=== PATIENT | female | born 1980 | race Caucasian/White ===

== ENCOUNTER 2016-09-24 15:11 | Emergency (ER) ==
[2016-09-24 15:21] VITALS: BP 168/109; TEMP 99.7; BMI 36.3
--- NOTE | 2016-09-24 16:09 | ED.PDOC ---
General ED Provider: Dr. ELEANOR ALBRECHT-ER Chief Complaint: Nausea/Vomiting Stated Complaint: my pancreatitis is flaring Time Seen by Physician: 16:07 Mode of Arrival: Walk-In Information Source: Patient Exam Limitations: No limitations Primary Care Provider: KUSUM SPANN Nursing and Triage Documentation Reviewed and Agree: Yes GI Complaint Exam - Abdominal Pain Complaint/Exam Onset: Gradual Duration: 3 days Symptoms Are: Still present Timing: Constant Initial Severity: Mild Current Severity: Moderate Location of Pain: Discrete Character: Reports: Dull, Aching, Cramping Alleviating: Reports: Vomiting. Denies: Bowel movement Associated Signs and Symptoms: Reports: Nausea, Vomiting, Diarrhea. Denies: Diaphoresis, Fever, Cough, Chest pain, Dizziness, Back pain, Constipation, Dysuria, Urinary frequency, Decreased urine output, Decreased appetite, Vaginal bleeding, Vaginal discharge Related History: Reports: Similar episode Ectopic Risk Factors: Reports: Tubal ligation Ovarian Torsion Risk Factors: Reports: Tubal ligation Surgical Obstruction Risk Factors: Reports: Colicky abdominal pain, Prior abdominal surgery Patient Rh Status: Unknown Abdominal Findings: Present: None Differential Diagnoses: Pancreatitis, Other Review of Systems - Review Of Systems Constitutional: Reports: No symptoms Eyes: Reports: No symptoms Ears, Nose, Mouth, Throat: Reports: No symptoms Respiratory: Reports: No symptoms Cardiac: Reports: No symptoms GI: Reports: Abdominal pain, Nausea, Vomiting : Reports: No symptoms Musculoskeletal: Reports: No symptoms Skin: Reports: No symptoms Neurological: Reports: No symptoms Endocrine: Reports: No symptoms Hematologic/Lymphatic: Reports: No symptoms All Other Systems: Reviewed and Negative Past Medical History - Past Medical History Previously Healthy: Yes Endocrine: Reports: DM 2, Dyslipidemia Cardiovascular: Reports: Hypertension Respiratory: Reports: None Hematological: Reports: None Gastrointestinal: Reports: GERD, Pancreatitis (CHRONIC), Other ( IBS ) Genitourinary: Reports: None Neuro/Psych: Reports: None Musculoskeletal: Reports: Joint Pain Cancer: Reports: None Last Menstrual Period: 2 weeks Other Pertinent Past Medical History: CHRONIC PANCREATITIS htn dm chol gerd - Surgical History General Surgical History: Reports: Tubal ligation, , Cholecystectomy ( ERCP, CHOLECYSTECTOMY), Orthopedic (BIALT CARPAL TUNNEL) - Family History Family History: Reports: Unknown - Social History Smoking Status: Former smoker Hx Substance Use: No Alcohol Screening: None Lives: With family Physical Exam - Physical Exam Appearance: Well-appearing, No pain distress, Well-nourished Pain Distress: Moderate Eyes: CHRISTOS, EOMI, Conjunctiva clear ENT: Ears normal, Nose normal, Oropharynx normal Neck: Supple Respiratory: Airway patent, Breath sounds clear, Breath sounds equal, Respirations nonlabored Cardiovascular: RRR, Pulses normal, No rub, No murmur GI/: Soft, Nontender, No masses, Bowel sounds normal, No Organomegaly Musculoskeletal: Normal strength, ROM intact, No edema, No calf tenderness Skin: Warm Neurological: Sensation intact Psychiatric: Affect appropriate, Mood appropriate Physician Notification - Case Discussed Physician Notified: dr spann Critical Care Note - Critical Care Note Total Time (mins): 0 Course - Course Vital Signs: Temp Pulse Resp BP Pulse Ox 09/24/16 15:15 99.7 F H 107 H 20 168/109 H 96 Departure - Departure Time of Disposition: 16:09 Disposition: TSF SHORT-TRM HOSP Discharge Problem: Pancreatitis Qualifiers: Chronicity: chronic Pancreatitis type: unspecified pancreatitis type Qualifier Code: (K86.1) Other chronic pancreatitis Instructions: Pancreatitis (ED) Condition: Good Pt referred to PMD for follow-up: Yes Allergies/Adverse Reactions: Allergies amoxicillin trihydrate [From Augmentin] Adverse Reaction (Verified 09/24/16 15: 22) Thrush clarithromycin [From Biaxin] Adverse Reaction (Verified 09/24/16 15:22) Diarrhea, Vomitting, Stomach pain potassium clavulanate [From Augmentin] Adverse Reaction (Verified 09/24/16 15:22 ) Thrush Home Medications: Ambulatory Orders Amlodipine Besylate [Norvasc] 5 mg PO DAILY 11/05/12 Omeprazole [Prilosec] 20 mg PO BEDTIME 11/05/12 Pravastatin Sodium [Pravachol] 40 mg PO BEDTIME 11/05/12 Tramadol HCl 50 mg PO Q4H PRN 02/28/16 Fenofibrate 1 tab PO DAILY 04/06/16 Promethazine HCl 25 mg PO Q6H PRN #20 tablet 04/21/16 Transfer Form Completed: Yes Disposition Discussed With: Patient, Family
[2016-09-24] MEDS ORDERED: PHENERGAN 50MG/ML AMP IM STA (16:16)
== END 2016-09-24 16:41 | disposition short-term general hospital (02) ==
LOC: ED 15:11
DX: K86.1 Other chronic pancreatitis (principal); I10 Essential (primary) hypertension; E78.5 Hyperlipidemia, unspecified; E11.9 Type 2 diabetes mellitus without complications; K21.9 Gastro-esophageal reflux disease without esophagitis; Z79.899 Other long term (current) drug therapy
CPT/HCPCS: 96372; 99285

== ENCOUNTER 2017-02-16 06:31 | Emergency (ER) ==
[2017-02-16 06:37] VITALS: BP 199/110; TEMP 99; BMI 35.2
[2017-02-16] MEDS ORDERED: DILAUDID 1 MG/ML SYRINGE IVP STA (06:59)
[2017-02-16] MEDS ORDERED: ZOFRAN 4 MG/2 ML IVP STA ×2 (06:59→07:38)
[2017-02-16] MEDS ORDERED: SODIUM CHLORIDE 1,000 ML IV STA (06:59)
[2017-02-16 07:25] LABS: BASOPHILS % (AUTO) 0.5 % (0.0-3.0); EOSINOPHILS # (AUTO) 0.1 K/ul (0.0-0.7); EOSINOPHILS % (AUTO) 1.2 % (0.0-7.0); HEMATOCRIT 34.4 % (37.0-47.0); HEMOGLOBIN 11.2 g/dl (12.0-16.0); IMMATURE GRANULOCYTE % (AUTO) 0.5 % (0.0-5.0); LYMPHOCYTES # (AUTO) 1.4 K/uL (0.60-3.4); MEAN CORPUSCULAR HEMOGLOBIN 26.5 pg (27.0-31.0); MEAN CORPUSCULAR HGB CONC 32.6 (31.8-35.4); MEAN CORPUSCULAR VOLUME 81.3 fl (81.0-99.0); MONOCYTES # (AUTO) 0.5 K/uL (0.4-2.0); MONOCYTES % (AUTO) 6.4 (0-10); NEUTROPHILS # (AUTO) 5.3 K/ul (2.0-6.9); NEUTROPHILS % (AUTO) 72.4; PLATELET COUNT 224 10^3/uL (140-440); RED BLOOD COUNT 4.23 10^6/ul (4.20-5.40); WHITE BLOOD COUNT 7.36 K/ul (4.6-10.2)
[2017-02-16 07:42] LABS: ALBUMIN 3.7 g/dL (3.4-5.0); ALBUMIN/GLOBULIN RATIO 0.86; ANION GAP 15.5; BILIRUBIN,TOTAL 0.38 mg/dL (0.00-1.20); BUN/CREATININE RATIO 15.87; CALCIUM 9.1 mg/dL (8.2-10.2); CREATININE 0.63 mg/dL (0.60-1.30); POTASSIUM 3.5 mmol/L (3.5-5.10)
[2017-02-16 08:59] LABS: BILIRUBIN,URINE Negative (NEGATIVE); KETONES,URINE Negative (NEGATIVE); LEUKOCYTE ESTERASE ,URINE Negative (NEGATIVE); NITRITE,URINE Negative (NEGATIVE); PROTEIN,URINE 2+ (NEGATIVE); URINE, BLOOD Trace-lysed (NEGATIVE)
[2017-02-16 09:01] LABS: ADD URINE MICROSCOPIC YES
[2017-02-16] MEDS ORDERED: MORPHINE 4 MG/ML VIAL IVP STA (09:34)
[2017-02-16 09:39] LABS: URINE PREGNANCY INTERNAL QC INTERNAL QC VALID
--- NOTE | 2017-02-16 10:31 | CT ---
EXAM: CT abdomen pelvis without contrast HISTORY: Pain COMPARISON: 10/24/2016 TECHNIQUE: CT abdomen pelvis performed without intravenous contrast. Coronal and sagittal reformatt ed images obtained. FINDINGS: There is mild dependent density lung bases. No free air. No acute abnormalities of the b ones. Mild degenerative change in the spine. Heart top normal in size. Liver diffusely decreased i n attenuation. Liver is enlarged. Patient status post cholecystectomy. Pancreas unremarkable. Spl een mildly enlarged. Adrenals unremarkable. No hydronephrosis or nephrolithiasis. No calculi visua lized in normal course of the ureters. Bladder unremarkable. Uterus unremarkable. Aorta normal in caliber. No lymphadenopathy or ascites. Small hiatal hernia and/or wall thickening distal esophagus . There is a percutaneous jejunostomy present with fluid in the stomach. No dilated loops small bow el. Fluid filled loops small bowel may represent mild enteritis. Appendix appears normal. Colon u nremarkable. IMPRESSION: 1. Possible mild enteritis. Recommend clinical correlation. 2. Hepatic steatosis. Hepatomegaly. 3. Splenomegaly. 4. Percutaneous gastrojejunostomy tube. 5. Small hiatal hernia and/or wall thickening distal esophagus that is nonspecific and may relate to esophagitis. Findings can be correlate with endoscopy or esophagram.
--- NOTE | 2017-02-16 10:58 | ED.PDOC ---
General ED Provider: Dr. KAMARI ZAMAN Chief Complaint: Abdominal Pain Stated Complaint: abdominal pain Time Seen by Physician: 07:00 (seen with linn ) Mode of Arrival: Walk-In Information Source: Patient Exam Limitations: No limitations Primary Care Provider: KUSUM CHARLES Nursing and Triage Documentation Reviewed and Agree: Yes GI Complaint Exam - Abdominal Pain Complaint/Exam Onset: Gradual Duration: 3 days Symptoms Are: Still present Timing: Intermittent Initial Severity: Moderate Current Severity: Moderate Location of Pain: Epigastric Character: Reports: Cramping Aggravating: Reports: None Alleviating: Reports: None Associated Signs and Symptoms: Reports: Nausea. Denies: Diaphoresis, Fever, Cough, Chest pain, Dizziness, Back pain, Constipation, Blood in stool, Dysuria, Urinary frequency, Decreased urine output, Decreased appetite, Vaginal bleeding , Vaginal discharge, Vomiting, Diarrhea, Sore throat, Decreased activity Related History: Reports: Similar episode AAA Risk Factors: Reports: None Cardiac Risk Factors: Reports: None Ectopic Risk Factors: Reports: None Ovarian Torsion Risk Factors: Reports: None Related Surgical History: Reports: None Patient Rh Status: Unknown Abdominal Findings: Present: None Differential Diagnoses: Appendicitis, Bowel Obstruction, Constipation, Diverticulitis, Pancreatitis Review of Systems - Review Of Systems Constitutional: Reports: No symptoms Eyes: Reports: No symptoms Ears, Nose, Mouth, Throat: Reports: No symptoms Respiratory: Reports: No symptoms Cardiac: Reports: No symptoms GI: Reports: Abdominal pain : Reports: No symptoms Musculoskeletal: Reports: No symptoms Skin: Reports: No symptoms Neurological: Reports: No symptoms Endocrine: Reports: No symptoms Hematologic/Lymphatic: Reports: No symptoms All Other Systems: Reviewed and Negative Past Medical History - Past Medical History Previously Healthy: Yes Endocrine: Reports: DM 2, Dyslipidemia Cardiovascular: Reports: Hypertension Respiratory: Reports: None Hematological: Reports: None Gastrointestinal: Reports: GERD, Pancreatitis (CHRONIC), Other ( IBS ) Genitourinary: Reports: None Neuro/Psych: Reports: None Musculoskeletal: Reports: Joint Pain Cancer: Reports: None Last Menstrual Period: 3 WEEKS AGO Other Pertinent Past Medical History: CHRONIC PANCREATITIS htn dm chol gerd - Surgical History General Surgical History: Reports: Tubal ligation, , Cholecystectomy ( ERCP, CHOLECYSTECTOMY), Orthopedic (BIALT CARPAL TUNNEL) - Family History Family History: Reports: Unknown - Social History Smoking Status: Never smoker Hx Substance Use: No Alcohol Screening: None - Immunizations Tetanus Shot up to Date: Yes Physical Exam - Physical Exam Appearance: Well-appearing, No pain distress, Well-nourished Eyes: CHRISTOS, EOMI, Conjunctiva clear ENT: Ears normal, Nose normal, Oropharynx normal Respiratory: Airway patent, Breath sounds clear, Breath sounds equal, Respirations nonlabored Cardiovascular: RRR, Pulses normal, No rub, No murmur GI/: Soft, Nontender, No masses, Bowel sounds normal, No Organomegaly Musculoskeletal: Normal strength, ROM intact, No edema, No calf tenderness Skin: Warm, Dry, Normal color Neurological: Sensation intact, Motor intact, Reflexes intact, Cranial nerves intact, Alert, Oriented Psychiatric: Affect appropriate, Mood appropriate Interpretation - Radiology Interpretation Radiology Interpretation By: Radiologist Radiology Results: No acute changes Physician Notification - Case Discussed Physician Notified: PMD Time of Notification: 10:59 (PT SHOULD D/C ENTERAL FEED AND RESUME PEDIALYTE) Critical Care Note - Critical Care Note Total Time (mins): 0 Course - Course Hematology/Chemistry: 02/16/17 07:10 02/16/17 07:10 Orders, Labs, Meds: Lab Review 02/16/17 02/16/17 02/16/17 07:10 07:10 08:50 WBC 7.36 RBC 4.23 Hgb 11.2 L Hct 34.4 L MCV 81.3 MCH 26.5 L MCHC 32.6 RDW Coeff of [place] 15.3 H Plt Count 224 Immature Gran % (Auto) 0.5 Neut % (Auto) 72.4 Lymph % (Auto) 19.0 [place] % (Auto) 6.4 Eos % (Auto) 1.2 Baso % (Auto) 0.5 Immature Gran # (Auto) 0.0 Neut # 5.3 Lymph # 1.4 [place] # 0.5 Eos # 0.1 Baso # 0.0 Sodium 138 Potassium 3.5 Chloride 105 Carbon Dioxide 21 Anion Gap 15.5 BUN 10 Creatinine 0.63 Estimated GFR (MDRD) 106.00 BUN/Creatinine Ratio 15.87 Glucose 140 H Calcium 9.1 Total Bilirubin 0.38 AST 25 ALT 47 Alkaline Phosphatase 91 Total Protein 8.0 Albumin 3.7 Globulin 4.3 Albumin/Globulin Ratio 0.86 Amylase 30 Lipase 27 Urine Color Yellow Urine Clarity Clear Urine pH 6.0 Ur Specific [place] >=1.030 Urine Protein 2+ Urine Glucose (UA) Negative Urine Ketones Negative Urine Blood Trace-lysed Urine Nitrite Negative Urine Bilirubin Negative Urine Urobilinogen 0.2 Ur Leukocyte Esterase Negative Urine Microscopic WBC 0-2 Ur Squamous Epith Cells 2-5 Urine Mucus 1+ Urine Test 02/16/17 08:50 WBC RBC Hgb Hct MCV MCH MCHC RDW Coeff of [place] Plt Count Immature Gran % (Auto) Neut % (Auto) Lymph % (Auto) [place] % (Auto) Eos % (Auto) Baso % (Auto) Immature Gran # (Auto) Neut # Lymph # [place] # Eos # Baso # Sodium Potassium Chloride Carbon Dioxide Anion Gap BUN Creatinine Estimated GFR (MDRD) BUN/Creatinine Ratio Glucose Calcium Total Bilirubin AST ALT Alkaline Phosphatase Total Protein Albumin Globulin Albumin/Globulin Ratio Amylase Lipase Urine Color Urine Clarity Urine pH Ur Specific [place] Urine Protein Urine Glucose (UA) Urine Ketones Urine Blood Urine Nitrite Urine Bilirubin Urine Urobilinogen Ur Leukocyte Esterase Urine Microscopic WBC Ur Squamous Epith Cells Urine Mucus Urine Test Negative Orders Category Date Time Status ED IV/MEDIPORT/POWERPORT .ONCE EMERGENCY 02/16/17 06:59 Active AMYLASE Stat LAB 02/16/17 07:10 Completed CBC W/ AUTO DIFF Stat LAB 02/16/17 07:10 Completed COMPREHENSIVE METABOLIC PANEL Stat LAB 02/16/17 07:10 Completed LIPASE Stat LAB 02/16/17 07:10 Completed TEST URINE [URINE ] Stat LAB 02/16/17 08:50 Completed UA [URINALYSIS C & S IF INDICATED] Stat LAB 02/16/17 08:50 Completed 0.9 % Sodium Chloride [Saline Flush] MEDS 02/16/17 06:59 Active 1 syr IVF PRN PRN Hydromorphone HCl [Dilaudid 1 mg/ml Syringe] MEDS 02/16/17 06:59 Discontinued 1 mg IVP ONCE STA Morphine Sulfate [Morphine 4 mg/ml Vial] MEDS 02/16/17 09:34 Discontinued 4 mg IVP ONCE STA Ondansetron HCl/Pf [Zofran 4 mg/2 ml] MEDS 02/16/17 06:59 Discontinued 4 mg IVP ONCE STA Ondansetron HCl/Pf [Zofran 4 mg/2 ml] MEDS 02/16/17 07:38 Discontinued 4 mg IVP ONCE STA Sodium Chloride 0.9% [Sodium Chloride] 1,000 ml MEDS 02/16/17 06:[address] ABDOMEN/PELVIS WO CONTRAST Stat RADS 02/16/17 09:29 Completed Medications Generic Name Dose Route Start Last Admin Trade Name Freq PRN Reason Stop Dose Admin Sodium Chloride 1 syr 02/16/17 06:59 02/16/17 07:33 Saline Flush IVF 1 syr PRN PRN Administration To flush IV Discontinued Medications Generic Name Dose Route Start Last Admin Trade Name Freq PRN Reason Stop Dose Admin Hydromorphone HCl 1 mg 02/16/17 06:59 02/16/17 07:33 Dilaudid 1 Mg/Ml Syringe IVP 02/16/17 07:00 1 mg ONCE STA Administration Sodium Chloride 1,000 mls @ 1,000 mls/hr 02/16/17 06:59 02/16/17 07:31 Sodium Chloride IV 02/16/17 07:58 1,000 mls/hr BOLUS STA Administration Morphine Sulfate 4 mg 02/16/17 09:34 02/16/17 09:56 Morphine 4 Mg/Ml Vial IVP 02/16/17 09:35 4 mg ONCE STA Administration Ondansetron HCl 4 mg 02/16/17 06:59 02/16/17 07:31 Zofran 4 Mg/2 Ml IVP 02/16/17 07:00 4 mg ONCE STA Administration Ondansetron HCl 4 mg 02/16/17 07:38 02/16/17 07:50 Zofran 4 Mg/2 Ml IVP 02/16/17 07:39 4 mg ONCE STA Administration Vital Signs: Temp Pulse Resp BP Pulse Ox 02/16/17 06:31 99 F 91 H 22 199/110 H 97 Departure - Departure Time of Disposition: 10:59 Disposition: HOME SELF-CARE Discharge Problem: Abdominal pain, Nausea Instructions: Abdominal Pain (ED), Chronic Abdominal Pain (ED) Condition: Good Pt referred to PMD for follow-up: Yes Additional Instructions: Please call your Family Physician as soon as possible to schedule a follow-up appointment. Allergies/Adverse Reactions: Allergies amoxicillin trihydrate [From Augmentin] Adverse Reaction (Verified 09/24/16 15: 22) Thrush clarithromycin [From Biaxin] Adverse Reaction (Verified 09/24/16 15:22) Diarrhea, Vomitting, Stomach pain potassium clavulanate [From Augmentin] Adverse Reaction (Verified 09/24/16 15:22 ) Thrush Home Medications: Ambulatory Orders Amlodipine Besylate [Norvasc] 5 mg PO DAILY 11/05/12 Omeprazole [Prilosec] 20 mg PO BEDTIME 11/05/12 Pravastatin Sodium [Pravachol] 40 mg PO BEDTIME 11/05/12 Fenofibrate 1 tab PO DAILY 04/06/16 Promethazine HCl 25 mg PO Q6H PRN #20 tablet 04/21/16 Disposition Discussed With: Patient, Family
== END 2017-02-16 11:17 | disposition home or self-care (01) ==
LOC: ED 06:31
DX: R10.9 Unspecified abdominal pain (principal); R11.0 Nausea; E11.9 Type 2 diabetes mellitus without complications; I10 Essential (primary) hypertension; E78.5 Hyperlipidemia, unspecified; Z87.19 Personal history of other diseases of the digestive system
CPT/HCPCS: 36415; 80053; 81001; 81025; 82150; 83690; 85025; 96361; 96374; 96375; 99283

== ENCOUNTER 2017-11-05 10:43 | Outpatient (CLI) ==
[2012-11-05 20:39] VITALS: TEMP 98.7
== END 2017-11-05 10:44 | disposition home or self-care (01) ==
LOC: LAB 10:43
PROVIDERS: ATTEND Family Medicine
DX: E78.5 Hyperlipidemia, unspecified (principal); K86.1 Other chronic pancreatitis; I10 Essential (primary) hypertension; E11.9 Type 2 diabetes mellitus without complications; K76.0 Fatty (change of) liver, not elsewhere classified; R11.2 Nausea with vomiting, unspecified; E66.9 Obesity, unspecified; Z68.37 Body mass index [BMI] 37.0-37.9, adult
CPT/HCPCS: 36415; 80053; 80061; 82607; 82746; 83036; 84443; 85025

== ENCOUNTER 2018-07-03 15:04 | Outpatient (CLI) ==
[2012-11-05 20:39] VITALS: TEMP 98.7
--- NOTE | 2018-07-03 17:44 | US ---
EXAM: ULTRASOUND ABDOMEN LIMITED HISTORY: Abdominal pain. FINDINGS: Ultrasound abdomen, limited. Gama-scale ultrasound and color Doppler was performed. Live r size was measured at 16.7 cm. The right hepatic lobe on recent CT measured up to 23 cm however. T he liver parenchyma demonstrates diffuse increased sound attenuation consistent with steatosis as als o demonstrated on recent CT. No focal hepatic lesions are identified. No intrahepatic biliary dilat ation. The main portal vein is patent and hepatopedal. The patient is post cholecystectomy. Common bile duct diameter measures between 8 and 11 mm. No cho ledocholithiasis is identified. There is no ascites. Visualized pancreas was within normal limits. Survey of the right kidney revealed no hydronephrosis IMPRESSION: 1. Elongated right hepatic lobe. Hepatic steatosis. 2. The main portal vein is patent and hepatopedal. 3. Post cholecystectomy state with common bile duct ectasia. Ectasia may be related to postop state , correlate with labs if indicated.
== END 2018-07-03 15:05 | disposition home or self-care (01) ==
LOC: RAD 15:04
PROVIDERS: ATTEND Transplant Surgery
DX: R10.9 Unspecified abdominal pain (principal)

== ENCOUNTER 2018-08-09 14:01 | Outpatient (CLI) | payer OTHER ==
[2012-11-05 20:39] VITALS: TEMP 98.7
--- NOTE | 2018-08-09 14:37 | US ---
EXAM: Limited abdominal ultrasound. History: Abdominal palpable abnormality. Technique: Multiple sonographic images through the area of concern of the superficial abdomen were o btained. Color duplex Doppler was used to interrogate vascular flow. Findings: No masses, cysts or fluid collections identified. Impression: No sonographic abnormalities
== END 2018-08-09 14:02 | disposition home or self-care (01) ==
LOC: RAD 14:01
PROVIDERS: ATTEND Family Medicine
DX: R10.9 Unspecified abdominal pain (principal); G89.29 Other chronic pain; L76.82 Other postprocedural complications of skin and subcutaneous tissue; R53.83 Other fatigue